=== PATIENT | female | born 1970 | race Caucasian/White ===

== ENCOUNTER 2016-05-29 15:21 | Emergency (ER) | payer OTHER ==
[2016-05-29 15:24] VITALS: BP 136/77; PULSE 69; RESP 20; O2SAT 98
--- NOTE | 2016-05-29 16:45 | DRSVH ---
PROCEDURE: X-RAY CHEST, TWO VIEWS ([id number]) INDICATIONS: cough TECHNIQUE: 2 views of the chest were acquired. COMPARISON: None. FINDINGS: Surgical changes and devices: None. Lungs and pleura: No pleural effusions or pneumothorax. There is a small nodular opacity in the lef t lung base measuring up to approximately 8 mm. No focal consolidation. Mediastinum: Mediastinal contours are normal. Heart size is normal. Bones and chest wall: No suspicious bony abnormalities. Soft tissues appear unremarkable. IMPRESSION: 1. No focal consolidation to suggest pneumonia. 2. Small 8mm nodular opacity in the left lung base may represent confluent vasculature structures ve rsus a pulmonary nodule. Recommend a short term follow up repeat study to demonstrate stability or r esolution versus comparison with prior outside studies. Dictated by: Micah Garcia M.D. on 05/29/2016 at 16:41 Approved by: Micah Garcia M.D. on 05/29/2016 at 16:43
--- NOTE | 2016-05-29 18:21 | ED.REPORT ---
HPI-Dyspnea / Wheezing Date of Service May 29, 2016 ED Provider: Cory Lima MD Pt is a 46 y/o female w/ a hx of asthma presenting to the ED c/o SOB onset 6 days ago. She c/o associated yellow productive cough, nasal congestion, headache , orthostatic lightheadedness, intermittent chest heaviness. She has been using her nebulizer and rescue inhaler along with her daily Qvar with little relief. Pt denies neck pain, fever. She denies history of PE, unilateral leg swelling, immobilization, recent surgeries. She is a non-smoker. Nursing Notes Stated Complaint: ASTHMA/FLU Chief Complaint: FLU/Cold Symptoms Nursing Notes Reviewed: Yes Allergies: Coded Allergies: NSAIDS (Non-Steroidal Anti-Inflamma (Verified Allergy, Unknown, GAstric bypass pt, 05/29/16) Scheduled Prednisone (PredniSONE) 20 Mg Tablet 60 MG PO DAILY Promethazine DM Syrup (Promethazine DM Syrup) 118 Ml Syrup 5 ML PO HS General Time Seen by MD: 18:18 Chief Complaint Shortness of breath Hx Obtained From: Patient Arrived By: Walk-in Sudden in Onset?: No Onset Occurred: 6 days ago Symptom Duration: Since onset Location: : Substernal Quality: Heaviness Radiation: : Does not radiate Severity: Current: No pain currently Severity: Maximum: Moderate Similar Sx Previous: Yes Risk Factors PERC Rule PERC rule satisfied Past Medical History Past Medical History Asthma Hx Type 2 diabetes Past Surgical History Gastric bypass Smoking History Never Smoker Ambulatory Status Independent Review of Systems Constitutional: Denies: Chills, Fever Ears / Nose / Throat: Reports: Nasal congestion Respiratory: Reports: Prod cough, yellow, Shortness of breath, Wheezing Cardiovascular: Reports: Chest pain, Denies: Edema Complete sys rev & neg: except as marked. Neurologic: Reports: Lightheaded Physical Exam Initial Vital Signs Vital Signs (First) Date Time Temp Pulse Resp B/P Pulse Ox O2 Delivery O2 Flow Rate FiO2 05/29/16 15:24 36.4 69 20 136/77 98 Room Air Initial VS: Reviewed, Vital signs normal Head / Eyes: Atraumatic, Normocephalic, PERRL ENT: Mucous membranes moist, Conjunctiva normal, No scleral icterus Abdomen / GI: Soft, Non-tender Extremities: Vascular intact, Neuro intact, No swelling, No tenderness Skin: Warm, Dry, No cyanosis Neurologic: Alert, Oriented, Nonfocal Psychiatric: Mood/affect normal, Behavior normal, Normal thought content General/Constitutional: Awake, Alert, No acute distress, Cooperative, Not toxic appearing Neck: Atraumatic, Supple, No meningismus, Full range of motion Respiratory / Chest: Atraumatic, No respiratory distress, No retractions, No stridor, No chest tenderness, No chest wall deformity, No crepitus Faint scattered wheezes bilaterally Cardiovascular: Heart rate NL, Regular rhythm, Heart sounds NL, No gallop, No murmurs, No rubs, Cap refill not delayed, Peripheral circulation NL Interpretation & Diagnostics Lab Results Interpretation Result Diagram: 05/29/16 1839 05/29/16 1839 Test 05/29/16 18:39 White Blood Count 9.2th/mm3 (3.8-10.1) Red Blood Count 4.27mil/mm3 (3.90-5.20) Hemoglobin 13.3g/dL (12.0-15.6) Hematocrit 39.7% (35.0-46.0) Mean Corpuscular Volume 93.0fL (81-100) Mean Corpuscular Hemoglobin 31.1pg (27.0-35.0) Mean Corpuscular Hemoglobin Concent 33.5% (32.0-37.0) Red Cell Distribution Width 12.7% (12.3-15.4) Platelet Count 165bil/L (150-400) Neutrophils (%) (Auto) 65.4% (40-74) Lymphocytes (%) (Auto) 25.8% (14-46) Monocytes (%) (Auto) 4.6% (4-12) Eosinophils (%) (Auto) 3.8% (0-5) Basophils (%) (Auto) 0.2% (0-3) Sodium Level 137mEq/L (134-144) Potassium Level 4.4mEq/L (3.5-5.2) Chloride Level 99mEq/L (97-108) Carbon Dioxide Level 25mmol/L (18-29) Blood Urea Nitrogen 15mg/dL (6-24) Creatinine 0.56mg/dL (0.57-1.00) Estimat Glomerular Filtration Rate 168mL/min (>59) Glucose Level 86mg/dL (60-99) Calcium Level 8.8mg/dL (8.5-10.1) Total Bilirubin 0.2mg/dL (0.0-1.2) Aspartate Amino Transf (AST/SGOT) 16U/L (0-50) Alanine Aminotransferase (ALT/SGPT) 12U/L (0-32) Alkaline Phosphatase 47U/L (25-150) Troponin T < 0.010ug/L (0.0-0.011) Total Protein 6.8g/dL (6.4-8.4) Albumin 4.1g/dL (3.4-5.0) ECG Interpretation Time: 19:31 Interpreted by: ED physician Normal ECG Interpretation: Normal ECG w/ rate of... (70), Normal rate, Normal sinus rhythm, No acute ischemic changes, Normal QRS, Normal axis, Normal intervals, Adequate tracing X-Ray Chest Interpretation Chest Xray Interpretation: IMPRESSION: 1. No focal consolidation to suggest pneumonia. 2. Small 8mm nodular opacity in the left lung base may represent confluent vasculature structures versus a pulmonary nodule. Recommend a short term follow up repeat study to demonstrate stability or resolution versus comparison with prior outside studies. Dictated by: Micah Garcia M.D. on 05/29/2016 at 16:41 Approved by: Micah Garcia M.D. on 05/29/2016 at 16:43 View: Portable, AP & lat Interpretation / Wet Read by: Interpret - Radiologist Re-Eval/Medical Decision Med Decision/Clinical Course 46-year-old female history of asthma presenting with cough and congestion and shortness of breath 1 week. Also with some chest pain yesterday. Vital signs stable. Scattered wheezes on exam resolved with nebulizer. EKG no signs ischemia. PERC negative. Troponins negative. Patient with apparent asthma exacerbation with likely viral trigger. Will be treated with cough syrup and 6 day steroid course. Patient is advised to use her nebulizer inhaler at home as needed. Return precautions given. Re-Evaluation/Progress : Time of Eval: 19:55 Re-Evaluation/Progress Note: Pt rechecked. Informed pt of plan for treatment. Pt understands and agrees with plan for treatment. F/U instructions and RTER warnings given. All questions addressed. Counseled Regarding: Diagnosis, Lab results, Need for follow-up, When/why to return to ED Discharge & Departure Impression: Primary Impression: Asthma exacerbation Additional Impression: Viral URI Disposition: Home Discharge Condition All VS Reviewed: Yes Condition: Stable Patient Instructions: Asthma (ED), Upper Respiratory Infection (ED) Additional Instructions: It appears you are experiencing an asthma exacerbation triggered by a viral upper respiratory infection. Your chest x-ray was normal, your labs were normal, your EKG was normal. There was no sign of heart attack or pneumonia. Take the full course of steroids as prescribed. Your had your first dose here. Return to the emergency department for increased shortness of breath, high fever , vomiting, severe pain, or for other concerning symptoms. Follow-up with your primary care physician in 2 days. Referrals: [facility] Scribe Attestation Portions of this note were transcribed by Red Mccray. I, Dr. Lima, personally performed the history, physical exam and medical decision-making; I reviewed and confirmed the accuracy of the information in the transcribed note. Signed by Tere Hill, 05/29/16 - [phone] copies to: [facility] Cory Lima MD May 29, 2016 18:21 RED MCCRAY May 29, 2016 18:29
[2016-05-29] MEDS ORDERED: Albuterol 2.5 mg/3 mL Inhalation Solution NEB ONE (18:30)
[2016-05-29 18:32] VITALS: BP 114/75; PULSE 70; RESP 18; O2SAT 99
[2016-05-29 18:58] LABS: BASOPHILS % (AUTO) 0.2 % (0-3); EOSINOPHILS % (AUTO) 3.8 % (0-5); MONOCYTES % (AUTO) 4.6 % (4-12); Mean Corpuscular Hemoglobin 31.1 pg (27.0-35.0); NEUTROPHILS % (AUTO) 65.4 % (40-74); Platelet Count 165 bil/L (150-400)
[2016-05-29 19:26] LABS: TROPONIN T < 0.010 ug/L (0.0-0.011)
[2016-05-29 19:40] VITALS: PULSE 72; RESP 20; O2SAT 97
[2016-05-29] MEDS ORDERED: predniSONE 20 mg Tablet PO ONE (19:55)
[2016-05-29] MEDS ORDERED: D-ME118S8 PO (20:02)
[2016-05-29] MEDS ORDERED: PRE20 PO (20:02)
[2016-05-29 20:30] VITALS: BP 119/73; PULSE 75; RESP 16; O2SAT 98
== END 2016-05-29 20:31 | disposition home or self-care (01) ==
LOC: SED 15:21
DX: J45.901 Unspecified asthma with (acute) exacerbation (principal); J06.9 Acute upper respiratory infection, unspecified; E11.9 Type 2 diabetes mellitus without complications; Z88.8 Allergy status to other drugs, medicaments and biological substances
CPT/HCPCS: 36415; 71020; 80053; 84484; 85025; 87804; 93005; 94664; 99285; J7613